=== PATIENT | female | born 1990 ===

== ENCOUNTER 2024-06-17 14:08 | Outpatient (AMB) | payer MEDICAID, SELFPAY ==
--- NOTE | 2024-06-17 14:15 | MHC.OFFVIS ---
Intake Visit Reasons: [employer] left leg pain Intake Note: Pt presents to the office today for left leg pain that started years ago. 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 She is accompanied by her spouse who was available to interpret. Offered iPad interpretation but there was no available interpreters. states that she has left lower leg pain which has been present for many years. They recently relocated from [place] where he states he had injections for pain from there provider. He is uncertain what these injections contained. She is also . Patient states that she does have pain in the knee that travels down the leg. Patient's spouse states that she did receive some type of services where a therapist came to the house and worked with her. No other treatment to date. She also complains multiple joint pain in the hands and fingers. Review of Systems Const All systems reviewed & are unremarkable except as noted in HPI and below Physical Exam Const General: cooperative and no acute distress Orientation/consciousness: patient oriented x3 Resp Effort & Inspection: normal respiratory effort and able to speak in complete sentences Cardio Peripheral pulses: Peripheral pulses 2+ throughout Neuro General: patient oriented x3 Extrem Other: Left knee is normal to inspection. There is no erythema or swelling. She does have crepitus with range of motion. There is some tenderness over the anterior tibialis. There is no pain along the posterior aspect of the knee. No tenderness along the calf. Achilles tendon intact. Full range of motion of the ankle. Neurovascularly intact. Assessment & Plan Assessment & Plan (1) Anterior tibialis tendinitis of left leg: Code(s): M76.812 - Anterior tibial syndrome, left leg Category: Medical Plan At this time I recommend conservative treatment with physical therapy. The is concerned that she will be unable to attend physical therapy as she is . I explained that if she is able to get from appointments that are out of the house and she should be able to attend physical therapy. I recommend some Tylenol to help with discomfort. As she is she needs to avoid anti-inflammatories. I also will put in a referral to Rheumatology given her multiple joint pain. They are content with this plan. Coding Level of Care Code New Pt Level 3 (76246) Complex EM visit Add On G2211 Diagnoses Anterior tibialis tendinitis of left leg M76.813
== END 2024-06-17 15:17 | disposition home or self-care (01) ==
LOC: HO.HOS 14:08
PROVIDERS: PCP Student in an Organized Health Care Education/Training Program; Visit Provider Physician Assistant
DX: M76.812 Anterior tibial syndrome, left leg (principal)
CPT/HCPCS: 99203

== ENCOUNTER → 2024-06-17 14:08 | Outpatient (BNVA) | payer MEDICAID, SELFPAY | PROVIDERS: PCP Student in an Organized Health Care Education/Training Program; Visit Provider Physician Assistant | DX: M76.812 Anterior tibial syndrome, left leg (principal) | CPT/HCPCS: 99212 ==

== ENCOUNTER 2024-09-09 09:12 | Outpatient (AMB) | payer MEDICAID, SELFPAY ==
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
[2024-09-09 09:15] VITALS: BP 120/84; PULSE 83
== END 2024-09-09 10:18 | disposition home or self-care (01) ==
PROVIDERS: PCP Student in an Organized Health Care Education/Training Program; Visit Provider Student in an Organized Health Care Education/Training Program
DX: M25.50 Pain in unspecified joint (principal)
CPT/HCPCS: 99204

== ENCOUNTER → 2024-09-09 09:12 | Outpatient (BNVA) | payer MEDICAID, SELFPAY | PROVIDERS: PCP Student in an Organized Health Care Education/Training Program; Visit Provider Student in an Organized Health Care Education/Training Program | DX: M25.50 Pain in unspecified joint (principal) | CPT/HCPCS: 99202 ==

== ENCOUNTER 2024-09-09 10:24 | Outpatient (REF) | payer MEDICAID, SELFPAY ==
[2024-09-09 10:51] LABS: MANUAL DIFF FLAG NO
[2024-09-09 11:01] LABS: Basophils Percent Auto 0.4 % (0-2); Eosinophils Absolute Auto 0.1 X10*3/uL (0.0-0.4); Eosinophils Percent Auto 1.4 % (0-4); Hematocrit 33.5 % (37.0-47.0); Hemoglobin 11.3 g/dl (12.0-16.0); Imm Gran Abs Auto 0.03 X10*3/uL (0.00-0.03); Imm Gran Pct Auto 0.4 % (0.0-0.4); Lymphocytes Absolute Auto 1.8 X10*3/uL (1.2-4.9); Lymphocytes Percent Auto 26.2 % (20-40); Mean Corpuscular HGB Conc 33.7 g/dl (31.0-35.0); Mean Corpuscular Hemoglobin 28.3 pg (27.0-33.0); Mean Corpuscular Volume 83.8 fL (80.0-98.0); Mean Platelet Volume 10.5 fL (9.4-12.3); Monocytes Absolute Auto 0.7 X10*3/uL (0.1-1.2); Monocytes Percent Auto 10.4 % (2-11); Neutrophils Absolute Auto 4.3 x10*3/uL (2.0-8.3); Neutrophils Percent Auto 61.2 % (45-73); Platelet Count 259 X10*3/uL (160-400); Red Cell Distribution Width 13.3 % (11.0-16.0)
[2024-09-09 11:36] LABS: Rheumatoid Factor < 13.0 IU/mL (<15.0)
[2024-09-09 11:42] LABS: Alanine Aminotransferase 8 U/L (0-31); Albumin Level 3.5 g/dL (3.5-5.0); Alkaline Phosphatase 72 U/L (39-117); Anion Gap 11 (12-20); Aspartate Amino Transferase 16 U/L (5-31); Bilirubin Total 0.3 mg/dL (0.0-1.0); Blood Urea Nitrogen 9 mg/dL (9-16); Calcium 8.5 mg/dL (8.4-10.2); Carbon Dioxide 18 mmol/L (22-29); Chloride 112 mmol/L (96-108); Estimated Glomerular Filt Rate > 60; Glucose Random 118 mg/dL (60-115); Potassium 3.4 mmol/L (3.3-5.1); Sodium 138 mmol/L (135-145); Total Protein 6.5 g/dL (6.5-8.0)
[2024-09-09 12:00] LABS: Erythrocyte Sedimentation Rate 16 MM/HR (0-20)
[2024-09-11 12:08] LABS: Cyclic Citrullinated Peptide <16 UNITS
[2024-09-11 12:13] LABS: Anti Nuclear Antibody Screen NEGATIVE (NEGATIVE)
[2024-09-11 13:44] LABS: Anti DNA DS Antibody 2 IU/mL; Antibody to SS-A Antigen <1.0 NEG AI (<1.0 NEG); Antibody to SS-B Antigen <1.0 NEG AI (<1.0 NEG); SM/Ribonucleoprotein Ab <1.0 NEG AI (<1.0 NEG); Smith Protein <1.0 NEG AI (<1.0 NEG)
[2024-09-11 18:09] LABS: Complement C3 155 mg/dL (83-193)
== END 2024-09-09 10:25 | disposition home or self-care (01) ==
LOC: HO.10HDL 10:24
PROVIDERS: Visit Provider Student in an Organized Health Care Education/Training Program
DX: M25.50 Pain in unspecified joint (principal)
CPT/HCPCS: 36415; 80053; 85025; 85652; 86038; 86140; 86160; 86200; 86225; 86235; 86431

== ENCOUNTER 2025-05-19 08:46 | Outpatient (AMB) | payer MEDICAID, SELFPAY ==
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
[2025-05-19 09:02] VITALS: BP 115/70; PULSE 84; O2SAT 97; BMI 28.9
--- OUTSIDE RECORDS SUMMARY | 2025-05-19 09:54 | XMS_ITS | Clinical Summary ---
Author Organization [facility] Address [address] [place] [address] Care Team Providers Care Sewing Line Baler Name Role Phone Hannah Mai ZABRINA Primary Care Provider + [phone] Source Comments PLEASE NOTE, if this patient is a minor, it may be UNLAWFUL to discuss sensitive information that is contained in these records (such as FAMILY PLANNING, MENTAL HEALTH or SUBSTANCE ABUSE) with the minor patient's parent or other person without the patient's specific authorization.[facility] Allergies No known active allergies Medications vitamin D3 5,000 unit capsule TK 1 T PO D 3 05/27/20 16 Active prenat.vits,moncho,mi h-hpyu-elwxm per tabletIndications: , unspecified gestational age (HHS-HCC) Take 1 Tablet by mouth once daily 90 Tablet 5 10/11/19 24 Active pyridoxine, vitamin B6, 25 mg tabletIndications: Nausea and vomiting, unspecified vomiting type Take 1 Tablet by mouth once daily. 90 Tablet 04/23/20 25 Active ondansetron ODT (ZOFRAN-ODT) 4 mg disintegrating tabletIndications: Nausea and vomiting, unspecified vomiting type Take 1 Tablet by mouth 2 (two) times daily as needed for nausea. 30 Tablet 04/23/20 25 Active ferrous sulfate 325 mg (65 mg iron) tabletIndications: , unspecified gestational age (HHS-HCC) Take 1 Tablet by mouth once daily with breakfast. 90 Tablet 3 04/23/20 25 Active ergocalciferol (VITAMIN D-2) 1,250 mcg (50,000 unit) capsuleIndications :Vitamin D deficiency Take 1 Capsule by mouth once a week. 12 Capsule 4 04/23/20 25 Active cyanocobalamin (VITAMIN B-12) 1,000 mcg tabletIndications: Vitamin B12 deficiency Take 1 Tablet by mouth once daily. 90 Tablet 1 04/23/20 25 Active diclofenac sodium (VOLTAREN) 1 % gelIndications:Jennifer ast pain, left Apply topically 2 (two) times daily. 100 g 3 04/23/20 25 Active acetaminophen (TYLENOL) 500 mg tabletIndications: Nonintractable headache, unspecified chronicity pattern, unspecified headache type Take 1 Tablet by mouth every 6 (six) hours as needed for pain. 30 Tablet 04/23/20 25 Active capsaicin (ICY HOT) 0.025 % patchIndications:C hronic bilateral low back pain without sciatica Place 1 Patch onto the skin every 8 (eight) hours as needed for pain. 30 Patch 2 04/23/20 25 Active ferrous sulfate 325 mg (65 mg iron) tabletIndications: , unspecified gestational age ([facility]) Take 1 Tablet by mouth once daily with breakfast 90 Tablet 3 10/11/19 24 025 Discontin ued(Reord er (E-Cancel Not Sent)) diclofenac sodium (VOLTAREN) 1 % gelIndications:Jennifer ast pain, left Apply topically 2 (two) times daily 100 g 3 05/23/20 24 025 Discontin ued(Reord er (E-Cancel Not Sent)) ergocalciferol (VITAMIN D-2) 1,250 mcg (50,000 unit) capsuleIndications :Vitamin D deficiency Take 1 Capsule by mouth once a week 12 Capsule 4 05/29/20 24 025 Discontin ued(Reord er (E-Cancel Not Sent)) cyanocobalamin (VITAMIN B-12) 1,000 mcg tabletIndications: Vitamin B12 deficiency Take 1 Tablet by mouth once daily 90 Tablet 1 05/29/20 24 025 Discontin ued(Reord er (E-Cancel Not Sent)) acetaminophen (TYLENOL) 500 mg tabletIndications: Nonintractable headache, unspecified chronicity pattern, unspecified headache type Take 1 Tablet by mouth every 6 (six) hours as needed for pain 30 Tablet 06/30/20 24 025 Discontin ued(Reord er (E-Cancel Not Sent)) pyridoxine, vitamin B6, 25 mg tabletIndications: Nausea and vomiting, unspecified vomiting type Take 1 Tablet by mouth once daily 90 Tablet 06/30/20 025 Discontin ued(Reord er (E-Cancel Not Sent)) ondansetron ODT (ZOFRAN-ODT) 4 mg disintegrating tabletIndications: Nausea and vomiting, unspecified vomiting type Take 1 Tablet by mouth 2 (two) times daily as needed for nausea 30 Tablet 06/30/20 025 Discontin ued(Reord er (E-Cancel Not Sent)) Active Problems Problem Noted Date Diagnosed Date 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 Last injection of Kineret was 2021. 06/2024: Seen by Ortho and recommended PT and Tylenol. 09/09/24: Rheum - this is possibly fibromyalgia, but will send labs and return in 4 weeks with records to review. Tylenol only given current . Immune to varicella 04/14/2016 Overview (04/14/2016): 02/25/2016 PPD screening test negative by quantiferon test 02/25/2016 04/14/2016 Encounters Date Type Department Care Team Description 04/23/2025 Results Follow-Up [address] [id number] Hannah Mai FNP 04/21/2025 10:40 AM EDT Office Visit [address] [id number] Hannah Mai FNP Alqaisy, Rufaida from Last 3 Months Immunizations Immunization Administration Dates Next Due Hep B, Adult/Adol (EIJVJJY-L-UMIMX/RECOMBIVAX-AD ULT) 02/12/2017,12/28/2016 Hep B,adult,adjuvanted (HEPLISAV) 04/21/2025 Influenza (FLUBLOK),recombinant,injectable,preservative Free 05/23/2024 MMR (MMR II/Priorix) 02/25/2016,11/13/2015 TDAP 12/28/2016 Td (adult), 5 Lf tetanus tox oid (Tenivac), preservative free 02/25/2016 Family History Medical History Relation Name Comments Congenital Heart Disease Sister 2 Relation Name Status Comments Brother Alive Father Alive Mother Alive Sister 1 Alive Sister 2 Social History Tobacco Use Types Packs/Day Years Used Date Smoking Tobacco: Never Passive Smoke Exposure: Never Smokeless Tobacco: Never Tobacco Cessation:Counseling Given: Not Answered Alcohol Use Standard Drinks/Week Comments No 0 (1 standard drink = 0.6 oz pur e alcohol) Social Connections Answer Date Recorded Connectedness 0 05/22/2024 Financial Resource Strain Answer Date R ecorded Financial Resource Strain 0 2023 Stress Answer Date Recorded Stress 0 10/08/2023 Physical Activity Answer Date Recorded Physical Activity 0 10/08/2023 Food Insecurity Answer Date Recorded Food 0 06/05/2024 Transportation Needs Answer Date Record ed Transportation 0 10/08/2023 Housing Stability Answer Date Recorded Housing 0 10/08/2023 Safety and Environment Answer Date Caleb rded Safety 0 10/08/2023 Utilities Answer Date Recorded Utilities 0 10/08/2023 Employment Answer Date Recorded Stress 0 05/22/2024 Comments No Sex and Gender Information Value Date Recorded Sex Assigned at Female 10/11/2023 9:59 AM PST Legal Sex Female 10:36 AM PDT Gender Identity Female 10/11/2023 9:59 AM PST Sexual Orientation Straight 10/11/2023 9: 59 AM PST Last Filed Vital Signs Vital Sign Reading Time Taken Comments Blood Pressure 108/80 04/21/2025 11:12 AM EDT Pulse 82 04/21/2025 11:12 AM EDT Temperature 36.8 C (98.2 F) 04/21/2025 11:12 AM EDT Respiratory Rate 16 04/21/2025 11:12 AM EDT Oxygen Saturation 99% 04/21/2025 11:12 AM EDT Inhaled Oxygen Concentration - - Weight 83.9 kg (185 lb) 04/21/2025 11:12 AM EDT Height 157.5 cm (5' 2.01 ) 04/21/2025 11:12 AM E DT Body Mass Index 33.83 04/21/2025 11:12 AM EDT Plan of Treatment Upcoming Encounters Date Type Department Care Team (Late st Contact Info) Description 05/19/2025 11:00 AM EDT Office Visit [facility] [address] [place] [phone] Pau HannahZABRINA [address] [place] [address] Jasmin Chacon [address] [place] [address] 08/26/2025 11:00 AM EST Office Visit [facility] [address] [place] [phone] LiliSean [address] [place] [address] Health Maintenance Due Date Last Done Comments Anxiety Screening 1990 HPV Screening 1990 Pap + HPV 1990 Relationship Safety Screening/Counseling 2005 Cervical Cancer Screening 2011 Pap Smear 2011 Opi-UURWX-97 ( season) 2025 Imm-Influenza (#1) 2025 05/23/2024, 1 , 06/30/2021, Additional history exists Annual Wellness (Adult): Indicated (All Coverage) 04/21/2026 04/21/2025, 04/21/2025, 10/11/2023, Additional history exists Hypertension Screening (#1) 04/21/2026 Tobacco Screening 04/23/2026 04/23/2025 Lipid Screening 04/21/2028 04/21/2025, 05/11, 10/11/2023 Imm-DTaP/Tdap/Td (6 - Td or Tdap) 12/01/2034 12/01/2024, 11/07/2021, 08/20/2017, Additional history exists HIV Screening Completed 10/11/2023, 04/11, 06/28/2020, Additional history exists Hepatitis C Screening Completed 10/11/2023, 021 Alcohol and Drug Screen Completed 04/21/20, 10/11/2023, 07/26/2016, Additional history exists Depression Annual Screen Completed 04/21/2025 Imm-Hepatitis B Completed 04/21/2025, 01/2017, 12/28/2016 Cervical Ablation/Cold-Knife Conization Discontinued Cervical Cryotherapy Discontinued Colposcopy Discontinued Endometrial Biopsy Discontinued Excision/Leep Discontinued HPV Genotyping Discontinued Vaginal Pap Discontinued Vulvoscopy Discontinued Procedures Procedure Name Priority Date/Time Associated Diagnosis Comments VITAMIN D, 1,25-DIHYDROXY Routine 04/21/2025 11:55 AM EDT Vitamin D deficiency BLOOD COUNT COMPLETE AUTO&AUTO DIFRNTL WBC Routine 04/21/2025 11:55 AM EDT Routine general medical examination at a health care facility COMPREHENSIVE METABOLIC PANEL Routine 04/21/2025 11:55 AM EDT Routine general medical examination at a health care facility TSH W/RFLX FREE T4 Routine 04/21/2025 11 :55 AM EDT Routine general medical examination at a health care facility HEMOGLOBIN GLYCOSYLATED A1C Routine 04/21/2025 11:55 AM EDT Routine general medical examination at a health care facility LIPID PANEL Routine 04/21/2025 11:55 AM EDT Routine general medical examination at a health care facility HIV 1/2 AG & AB W/RFLX (4TH GEN) Routine 10/11/2023 11:45 AM EST Routine general medical examination at a health care facility HEPATITIS C AB W/RFLX HCV RNA, QT, RT PCR Routine 10/11/2023 11:45 AM EST Routine general medical examination at a health care facility from Last 3 Months or Most Recently Relevant to Health Maintenance Results * TSH W/RFLX FREE T4 Routine (04/21/2025 11:55 AM EDT) TSH W/REFLEX TO FT4 1.68 mIU/L 04/22/2025 9:18 AM EDT [facility] Blood Blood / Unknown 04/21/2025 1 1:55 AM EDT 04/22/2025 7:37 AM EDT Narrative [facility] GIANNA DIAZ - 04/22/2025 9:24 AM EDT FASTING:NO Reference Range . > or = 20 Years 0.40-4.50 . Ranges First trimester 0.26-2.66 Second trimester 0.55-2.73 Third trimester 0.43-2.91 Hannah Mai SEWING DEMONSTRATOR LAB - BLOOD DRAW Final Resul t [facility] [place] [employer] [address] [place] [address], [facility] [address] [address] * VITAMIN D, 1,25-DIHYDROXY Routine (04/21/2025 11:55 AM EDT) VITAMIN D, 1, 25 (OH)2, TOTAL 60 18 - 72 pg/mL 04/25/2025 4:38 PM EDT [facility] [employer] VITAMIN D3, 1, 25 (OH)2 44 pg/mL 04/25/2025 4:38 PM EDT [employer] [facility] [employer] VITAMIN D2, 1, 25 (OH)2 16 pg/mL 04/25/2025 4:38 PM EDT [facility] Blood Blood / Unknown 04/21/2025 1 1:55 AM EDT 04/23/2025 5:15 AM EDT Victorino [facility] - 04/25/2025 4:42 PM EDT FASTING:NO . Vitamin D3, 1,25(OH)2 indicates both endogenous production and supplementation. Vitamin D2, 1,25(OH)2 is an indicator of exogenous sources, such as diet or supplementation. Interpretation and therapy are based on measurement of Vitamin D,1,25(OH)2, Total. . . This test was developed and its analytical performance characteristics have been determined by [employer], [place], [place]. It has not been cleared or approved by the FDA. This assay has been validated pursuant to the CLIA regulations and is used for clinical purposes. . Hannah Pau [facility] - BLOOD DRAW Final Resul t [facility] [place] [address] [place], [place] , [facility] [address] [place], [place] * (ABNORMAL) BLOOD COUNT COMPLETE AUTO&AUTO DIFRNTL WBC Routine (04/21/2025 11:55 AM EDT) [facility] WHITE BLOOD CELL COUNT 5.2 3.8 - 10.8 Thousand/ uL 04/22/2025 4:16 AM EDT [facility] RED BLOOD CELL COUNT 4.51 3.80 - 5.10 Million/u L 04/22/2025 4:16 AM EDT [facility] HEMOGLOBIN 12.3 11.7 - 15.5 g/dL 04/22/2025 4:16 AM EDT [facility] HEMATOCRIT 39.8 35.0 - 45.0 % 04/22/2025 4:16 AM EDT [facility] MCV 88.2 80.0 - 100.0 fL 04/22/2025 4:16 AM EDT [facility] MCH 27.3 27.0 - 33.0 pg 04/22/2025 4:16 AM EDT [facility] MCHC 30.9(L) 32.0 - 36.0 g/dL 04/22/2025 4:16 AM EDT [facility] RDW 12.3 11.0 - 15.0 % 04/22/2025 4:16 AM EDT [facility] PLATELET COUNT 324 140 - 400 Thousand/ uL 04/22/2025 4:16 AM EDT [facility] MPV 9.9 7.5 - 12.5 fL 04/22/2025 4:16 AM EDT [facility] ABSOLUTE NEUTROPHILS 2,501 1,500 - 7,800 cells/uL 04/22/2025 4:16 AM EDT [facility] ABSOLUTE LYMPHOCYTES 1,981 850 - 3,900 cells/uL 04/22/2025 4:16 AM EDT [facility] ABSOLUTE MONOCYTES 588 200 - 950 cells/uL 04/22/2025 4:16 AM EDT [facility] ABSOLUTE EOSINOPHILS 88 15 - 500 cells/uL 04/22/2025 4:16 AM EDT [facility] ABSOLUTE BASOPHILS 42 0 - 200 cells/uL 04/22/2025 4:16 AM EDT [facility] NEUTROPHILS PCT 48.1 % 4:16 AM EDT [facility] LYMPHOCYTES 38.1 % 04/22/2025 4:16 AM EDT [facility] MONOCYTES 11.3 % 04/22/2025 4:16 AM EDT [facility] EOSINOPHILS 1.7 % 04/22/2025 4:16 AM EDT [facility] BASOPHILS 0.8 % 04/22/2025 4:16 AM EDT [facility] Blood Blood / Unknown 04/21/2025 1 1:55 AM EDT 04/22/2025 2:48 AM EDT [employer] - 04/22/2025 4:19 AM EDT FASTING:NO For adults, a slight decrease in the calculated MCHC value (in the range of 30 to 32 g/dL) is most likely not clinically significant; however, it should be interpreted with caution in correlation with other red cell parameters and the patient's clinical condition. us Hannah Mai SEWING DEMONSTRATOR LAB - BLOOD DRAW Final Resul t [email or web address] [address] [place] [address], [facility] [address] [address] * HEMOGLOBIN GLYCOSYLATED A1C Routine (04/21/2025 11:55 AM EDT) HEMOGLOBIN A1C 5.3 <5.7 % 04/22/2025 6:01 AM EDT [facility] Blood Blood / Unknown 04/21/2025 1 1:55 AM EDT 04/22/2025 2:48 AM EDT [employer] - 04/22/2025 6:08 AM EDT FASTING:NO For the purpose of screening for the presence of diabetes: . <5.7% Consistent with the absence of diabetes 5.7-6.4% Consistent with increased risk for diabetes (prediabetes) > or =6.5% Consistent with diabetes . This assay result is consistent with a decreased risk of diabetes. . Currently, no consensus exists regarding use of hemoglobin A1c for diagnosis of diabetes in children. . According to [place] Diabetes Association (ADA) guidelines, hemoglobin A1c <7.0% represents optimal control in non- diabetic patients. Different metrics may apply to specific patient populations. Standards of Medical Care in Diabetes(ADA). . Hannah Mai [facility] - BLOOD DRAW Final Resul t [email or web address] [address] [place] [address], [facility] [employer] [facility] [address] [place] [phone] * (ABNORMAL) LIPID PANEL Routine (04/21/2025 11:55 AM EDT) [facility] Signature CHOLESTEROL, TOTAL 139 <200 mg/dL 04/22/2025 9:29 AM EDT [employer] HDL CHOLESTEROL 42(L) > OR = 50 mg/dL 04/22/2025 9:29 AM EDT [facility] TRIGLYCERIDES 177(H) <150 mg/dL 04/22/2025 9:29 AM EDT [facility] LDL-CHOLESTEROL 72 mg/dL (calc) 04/22/2025 9:29 AM EDT [employer] [facility] CHOL/HDLC RATIO 3.3 <5.0 (calc) 04/22/2025 9:29 AM EDT [facility] NON-HDL CHOLESTEROL 97 <130 mg/dL (calc) 04/22/2025 9:29 AM EDT [employer] [facility] Blood Blood / Unknown 04/21/2025 1 1:55 AM EDT 04/22/2025 7:37 AM EDT Narrative [facility] - 04/22/2025 9:39 AM EDT FASTING:NO Reference range: <100 . Desirable range <100 mg/dL for primary prevention; <70 mg/dL for patients with CHD or diabetic patients with > or = 2 CHD risk factors. . LDL-C is now calculated using the Aaron calculation, which is a validated novel method providing better accuracy than the Friedewald equation in the estimation of LDL-C. Mingo SUH et al. NOAH. 2013;310(19): 5399-1620 (http://education.nanoMR/faq/XGD058) For patients with diabetes plus 1 major ASCVD risk factor, treating to a non-HDL-C goal of <100 mg/dL (LDL-C of <70 mg/dL) is considered a therapeutic option. Hannah Mai [facility] - BLOOD DRAW Final Resul t [employer] [address] [address], [facility] [address] [address] * COMPREHENSIVE METABOLIC PANEL Routine (04/21/2025 11:55 AM EDT) [facility] GLUCOSE 94 65 - 139 mg/dL 04/22/2025 9:29 AM [employer] [facility] UREA NITROGEN (BUN) 12 7 - 25 mg/dL 04/22/2025 9:29 AM [facility] CREATININE (blood) 0.52 0.50 - 0.97 mg/dL 04/22/2025 9:29 AM [employer]BIC [employer] [facility] EGFR 125 > OR = 60 mL/min/1. 73m2 04/22/2025 9:29 AM [employer] [facility] BUN/CREATININE RATIO SEE NOTE: 6 - 22 (calc) 04/22/2025 9:29 AM [employer] [facility] SODIUM 138 135 - 146 mmol/L 04/22/2025 9:29 AM [employer] [facility] POTASSIUM 4.6 3.5 - 5.3 mmol/L 04/22/2025 9:29 AM [employer] [facility] CHLORIDE 105 98 - 110 mmol/L 04/22/2025 9:29 AM [employer] [facility] CARBON DIOXIDE 28 20 - 32 mmol/L 04/22/2025 9:29 AM [employer] [facility] CALCIUM 9.1 8.6 - 10.2 mg/dL 04/22/2025 9:29 AM EDT [facility] PROTEIN, TOTAL 7.0 6.1 - 8.1 g/dL 04/22/2025 9:29 AM EDT [facility] ALBUMIN 4.5 3.6 - 5.1 g/dL 04/22/2025 9:29 AM EDT [facility] GLOBULIN 2.5 1.9 - 3.7 g/dL (calc) 04/22/2025 9:29 AM EDT [facility] ALBUMIN/GLOBULI N RATIO 1.8 1.0 - 2.5 (calc) 04/22/2025 9:29 AM EDT [facility] BILIRUBIN, TOTAL 0.3 0.2 - 1.2 mg/dL 04/22/2025 9:29 AM EDT [facility] ALKALINE PHOSPHATASE 83 31 - 125 U/L 04/22/2025 9:29 AM EDT [facility] AST 16 10 - 30 U/L 04/22/2025 9:29 AM EDT [facility] ALT 23 6 - 29 U/L 04/22/2025 9:29 AM EDT [facility] Blood Blood / Unknown 04/21/2025 1 1:55 AM EDT 04/22/2025 7:37 AM EDT Narrative [employer] - 04/22/2025 9:39 AM EDT FASTING:NO . Non-fasting reference interval . Not Reported: BUN and Creatinine are within reference range. . us Hannah Mai [facility] - BLOOD DRAW Final Resul t [employer] [address] [address], [facility] [address] [address] * HEPATITIS C AB W/RFLX HCV RNA, QT, RT PCR (10/11/2023 11:45 AM EST) HEPATITIS C ANTIBODY NON-REACT GITA NON-REACT GITA [facility] Comment: HCV antibody was non-reactive. There is no laboratory evidence of HCV infection. In most cases, no further action is required. However, if recent HCV exposure is suspected, a test for HCV RNA (test code 55041) is suggested. For additional information please refer to http://Its Time [employer]iance.Riskthinktank/faq/SID35k2 (This link is being provided for informational/ educational purposes only.) Blood Blood / Unknown 10/11/2023 1 1:45 AM EST 10/11/2023 11:46 AM EST us Mehrdad Posada MD LAB - BLOOD DRAW Final Result Performing Organization Address [facility] Co de Phone Number [facility] [address] [address], [facility] [address] [address] * HIV 1/2 AG & AB W/RFLX (4TH GEN) (10/11/2023 11:45 AM EST) HIV AG/AB, 4TH GEN NON-REAC TIVE NON-REAC TIVE [facility] Comment: HIV-1 antigen and HIV-1/HIV-2 antibodies were not detected. There is no laboratory evidence of HIV infection. PLEASE NOTE: This information has been disclosed to you from records whose confidentiality may be protected by state law. If your state requires such protection, then the state law prohibits you from making any further disclosure of the information without the specific written consent of the person to whom it pertains, or as otherwise permitted by law. A general authorization for the release of medical or other information is NOT sufficient for this purpose. For additional information please refer to http://Its Time Compliance.Riskthinktank/faq/LGX701 (This link is being provided for informational/ educational purposes only.) The performance of this assay has not been clinically validated in patients less than 2 years old. Blood Blood / Unknown 10/11/2023 1 1:45 AM EST 10/11/2023 11:46 AM EST us Mehrdad Posada MD LAB - BLOOD DRAW Final Result Performing Organization Address [facility]/ZIP Co de Phone Number [facility] [address] [address], [facility] [address] [phone] from Last 3 Months or Most Recently Relevant to Health Maintenance Insurance [employer] [address] [employer] [address] [employer] Care Teams Sewing Line Baler Relationship Specialty Start Date End Date Hannah Mai FNP [address] [place] [address] PCP - General Family Medicine, WARPER TENDER 03/10/25
--- OUTSIDE RECORDS SUMMARY | 2025-05-19 09:54 | XMS_ITS | Clinical Summary ---
Author Organization [employer] [facility] Address [address] [place] [address] Care Team Providers Care Oil Field Tester Name Role Phone Unavailable Primary Care Provider Unavailabl e Encounters Date Type Department Care Team Description 03/31/2025 Population Health Risk Score [facility] Care [facility] (C3) Department [address] [place] [id number] Provider, Population Health Generic from Last 3 Months Social History Tobacco Use Types Packs/Day Years Used Date Smoking Tobacco: Never Assessed Comments Unknown Sex and Gender Information Value Date Recorded Sex Assigned at Not on file Legal Sex Female 9:21 PM EDT Gender Identity Not on file Sexual Orientation Not on file Plan of Treatment Health Maintenance Due Date Last Done Comments Depression Screening 1990 SDOH Screening 1990 Disability Screening 1990 Alcohol/Substance Use Screening 2002 Tobacco Screening 2002 Family Planning (PISQ) 2005 HPV Vaccines (1 - 3-dose series) 2005 Hepatitis C Screening 2008 Pap Smear 2011 Cervical Cancer Screening 2020 HPV/Cotest 2020 COVID-19 Vaccine ( - 2023-2 5 season) 2025 Influenza Vaccine (#1) 2025 05/23/2024 DTaP/Tdap/Td Vaccines (2 - T d or Tdap) 12/28/2026 12/28/2016, 02/25/2016 Zoster Vaccines (1 of 2) 2040 RSV Patients and Patients Aged 60 years or older (1 - 1-dose 75+ series) 2065 HIV Screening Completed 10/11/2023, 10/11/2023 Hepatitis B Vaccines Completed 04/21/2025, 02/12/2017, 12/28/2016 HIB Vaccines Aged Out No longer eligi ble based on patient's age to complete this topic Hepatitis A Vaccines Aged Out No long er eligible based on patient's age to complete this topic IPV Vaccines Aged Out No longer eligi ble based on patient's age to complete this topic Meningococcal B Vaccine Aged Out No l onger eligible based on patient's age to complete this topic Meningococcal Vaccine Aged Out No verito gabrielle eligible based on patient's age to complete this topic Pneumococcal Vaccine: Pediatrics (0 to 5 Years) and At-Risk Patients (6 to 49) Years Aged Out No longer eligible b ased on patient's age to complete this topic RSV under 20 months Aged Out No longe r eligible based on patient's age to complete this topic Rotavirus Vaccines Aged Out No longer eligible based on patient's age to complete this topic
--- OUTSIDE RECORDS SUMMARY | 2025-05-19 09:54 | XMS_ITS | Clinical Summary ---
Author Organization [facility] it Address [address] [place] [address] Care Team Providers Care Merchandise Examiner Name Role Phone Unavailable Primary Care Provider Unavailabl e Social History Tobacco Use Types Packs/Day Years Used Date Smoking Tobacco: Never Smokeless Tobacco: Never Alcohol Use Standard Drinks/Week Comments Not Currently 0 (1 standard drink = 0.6 oz pur e alcohol) Comments Unknown Sex and Gender Information Value Date Recorded Sex Assigned at Not on file Legal Sex Female 9:36 AM EST Gender Identity Not on file Sexual Orientation Not on file Obstetrics History Last Filed Vital Signs Vital Sign Reading Time Taken Comments Blood Pressure 115/60 12/18/2023 3:06 PM EDT Pulse 98 11/14/2023 2:07 PM EST Temperature - - Respiratory Rate - - Oxygen Saturation - - Inhaled Oxygen Concentration - - Weight 84.4 kg (186 lb) 12/18/2023 3:06 PM EDT Height - - Body Mass Index - - Plan of Treatment Health Maintenance Due Date Last Done Comments Hepatitis B Vaccines (1 of 3 - 19+ 3-dose series) 2009 HIV Screening 08/04/2024 Hepatitis C Screening 08/04/2024 Social Influencers of Health Screening 08/04/2024 Depression Screening 09/10/2024 COVID-19 Vaccine (1 - 2023-2 5 season) 2025 Influenza Vaccine (#1) 2025 06/23/2022 Cervical Cancer Screening: P ap Smear 12/18/2026 12/19/2023 DTaP,Tdap,and Td Vaccines (2 - Td or Tdap) 11/07/2031 11/07/2021 HIB Vaccines Aged Out No longer eligi ble based on patient's age to complete this topic HPV Vaccines Aged Out No longer eligi ble based on patient's age to complete this topic Hepatitis A Vaccines Aged Out No long er eligible based on patient's age to complete this topic IPV Vaccines Aged Out No longer eligi ble based on patient's age to complete this topic MMR Vaccines Aged Out No longer eligi ble based on patient's age to complete this topic Meningococcal ACWY Vaccine Aged Out N o longer eligible based on patient's age to complete this topic Meningococcal B Vaccine Aged Out No l onger eligible based on patient's age to complete this topic Pneumococcal Vaccine: Pediat rics (0 to 5 Years) and At-Risk Patients (6 to 49 Years) Aged Out No longer eligi ble based on patient's age to complete this topic RSV Immunization Patients Un melchor 20 months Aged Out No longer eligible b ased on patient's age to complete this topic Varicella Vaccines Aged Out No longer eligible based on patient's age to complete this topic Procedures Procedure Name Priority Date/Time Associated Diagnosis Comments PAP SMEAR Routine 12/19/2023 from Last 3 Months or Most Recently Relevant to Health Maintenance Results * Pap smear (12/19/2023) 12/19/2023 Narrative HISTORICAL TESTING LAB RESULTING AGENCY - 12/24/2023 4:06 PM EDT [id number] THINPREP PAP, IMAGED: NEGATIVE FOR SQUAMOUS INTRAEPITHELIAL LESION AND MALIGNANCY. FUNGAL ORGANISMS MORPHOLOGICALLY CONSISTENT WITH SCOTTY SPP. RONNIE MCGILL(ASCP) (CASE ELECTRONICALLY SIGNED 12 24 2023) RESULT OF APTIMA HIGH RISK HPV ASSAY: HIGH RISK HPV: NEGATIVE (SEROTYPES 16,18,31,33,35,39,45,51,52,56,58,59,66,68) COMPLETED ON 2023-12-21 ADEQUACY: SATISFACTORY ENDOCERVICAL/TRANSFORMATION ZONE COMPONENT ABSENT. SOURCE: THINPREP PAP HPV ANY DX: REFLEX 16 AND 18, CERVICAL, IMAGED CLINICAL INFORMATION: HPV ANY DIAGNOSIS. , PAP HX NEGATIVE, LMP 05/02/23, [Z12.4] Antonina Chu CNM LAB CYTOLOGY ORDERABLES Final Result HISTORICAL TESTING LAB RESULTING AGENCY from Last 3 Months or Most Recently Relevant to Health Maintenance
== END 2025-05-19 09:23 | disposition home or self-care (01) ==
LOC: HO.RHES 08:47
PROVIDERS: PCP Student in an Organized Health Care Education/Training Program; Visit Provider Student in an Organized Health Care Education/Training Program
DX: M79.7 Fibromyalgia (principal)
CPT/HCPCS: 99214

== ENCOUNTER → 2025-05-19 08:46 | Outpatient (BNVA) | payer MEDICAID, SELFPAY | PROVIDERS: PCP Student in an Organized Health Care Education/Training Program; Visit Provider Student in an Organized Health Care Education/Training Program | DX: M79.7 Fibromyalgia (principal) | CPT/HCPCS: 99212 ==